=== PATIENT | female | born 1980 | race African-American/Black ===

== ENCOUNTER → 2019-01-06 | Outpatient (CLI) | payer MEDICAID ==
--- NOTE | 2019-01-06 13:02 | EKG REPORT ---
SEVERITY:- ABNORMAL ECG - SINUS RHYTHM NONSPECIFIC T ABNORMALITIES, INFERIOR LEADS : Confirmed by: Luis Mercado MD 06-Jan-2019 13:02:26
== END ==
LOC: OD 12:28
PROVIDERS: ATTEND Nurse Practitioner Acute Care
DX: I10 Essential (primary) hypertension (principal)
CPT/HCPCS: 93005; 93010

== ENCOUNTER → 2019-01-19 | Outpatient (CLI) | payer MEDICAID ==
--- NOTE | 2019-01-21 20:52 | XCELERA REPORT ---
[address] [address] Transthoracic Echocardiogram Report Name: NIYAH ARCHULETA Age: 38 yrs Gender: Female : 1980 Patient Status: Outpatient Patient Location: Study Date: 01/19/2019 03:04 PM Height: 64 in Weight: 270 lb BSA: 2.2 m2 Procedure: A two-dimensional transthoracic echocardiogram with color flow and Doppler was performed. Study Quality: Technically suboptimal. The study was technically difficult with many images being suboptimal in quality. Reason For Study: PRIMARY HTN History: PRIMARY HTN. Ordering Physician: ELENA VILLAVICENCIO Performed By: Nandini Maier Interpretation Summary A two-dimensional transthoracic echocardiogram with color flow and Doppler was performed. The study was technically difficult with many images being suboptimal in quality. The left ventricle is grossly normal size. There is normal left ventricular wall thickness. LV EF is 60% Left ventricular systolic function is normal. Doppler measurements suggest normal left ventricular diastolic function The left ventricular wall motion is normal. Cannoassess ASD,VSD,or PFO. There is no thrombus. The right ventricle is not well visualized secondary to technical limitations Right atrium not well visualized secondary to technical limitations The left atrial size is normal. There is no evidence of mitral valve prolapse. There is no mitral valve stenosis. There is a trace amount of mitral regurgitation There is no aortic valve stenosis There is no LVOT obstruction. No aortic regurgitation is present. There is a trace amount of tricuspid regurgitation Early mild pulmonary Hypertension.RVSP is 32 mm of Hg , with RA mean of 10. There is no pulmonic valvular stenosis. There is no pulmonic valvular regurgitation. The aortic root is not well visualized but is probably normal size. The inferior vena cava appeared normal and decreased > 50% with respiration (RAP 5-10 mmHg) The inferior vena cava was not well visualized There is no pericardial effusion. MMode/2D Measurements & Calculations IVSd: 0.86 cm LVIDd: 5.1 cm FS: 42.4 % Ao root diam: 2.7 cm LVIDs: 3.0 cm EDV(Teich): 126.1 ml Ao root area: 5.6 cm2 LVPWd: 0.82 cm ESV(Teich): 33.9 ml EF(Teich): 73.1 % Doppler Measurements & Calculations MV E max al: MV dec slope: Ao V2 max: LV V1 max P.3 cm/sec 530.6 cm/sec2 122.7 cm/sec 4.1 mmHg MV A max al: MV dec time: 0.16 secAo max PG: LV V1 max: 76.9 cm/sec 6.0 mmHg 100.8 cm/sec MV E/A: 1.1 PA V2 max: TR max al: 130.4 cm/sec 232.1 cm/sec PA max P.8 mmHg TR max P.7 mmHg Left Ventricle The left ventricle is grossly normal size. There is normal left ventricular wall thickness. LV EF is 60%. Left ventricular systolic function is normal. Doppler measurements suggest normal left ventricular diastolic function. The left ventricular wall motion is normal. Cannoassess ASD,VSD,or PFO. There is no thrombus. Right Ventricle The right ventricle is not well visualized secondary to technical limitations. Atria Right atrium not well visualized secondary to technical limitations. The left atrial size is normal. Mitral Valve There is no evidence of mitral valve prolapse. There is no mitral valve stenosis. There is a trace amount of mitral regurgitation. Aortic Valve There is no aortic valve stenosis. There is no LVOT obstruction. No aortic regurgitation is present. Tricuspid Valve There is no tricuspid stenosis. There is a trace amount of tricuspid regurgitation. Early mild pulmonary Hypertension.RVSP is 32 mm of Hg , with RA mean of 10. Pulmonic Valve There is no pulmonic valvular stenosis. There is no pulmonic valvular regurgitation. Great Vessels The aortic root is not well visualized but is probably normal size. The inferior vena cava appeared normal and decreased > 50% with respiration (RAP 5-10 mmHg). The inferior vena cava was not well visualized. Effusions There is no pericardial effusion. : ELENA VILLAVICENCIO Lakshmi
== END ==
LOC: SP 13:49
PROVIDERS: ATTEND Nurse Practitioner Acute Care
DX: I10 Essential (primary) hypertension (principal)
CPT/HCPCS: 93306